=== PATIENT | female | born 1955 | race Caucasian/White ===

== ENCOUNTER 2018-06-14 07:08 | Outpatient (CLI) | payer OTHER ==
[2018-06-14 08:44] LABS: eGFR (Non-African) > 60
== END 2018-06-14 07:10 ==
LOC: LAB 07:08
PROVIDERS: ATTEND Family Medicine
DX: Z00.00 Encounter for general adult medical examination without abnormal findings (principal)
CPT/HCPCS: 36415; 80053; 80061

== ENCOUNTER 2018-11-16 10:09 | Emergency (ER) | payer OTHER ==
--- NOTE | 2018-11-16 12:50 | ED Physician Documentation ---
General Adult - HISTORIAN Historian: patient - HPI Stated Complaint: Right arm pain Chief Complaint: General Adult Onset: minutes Timing: still present Severity: moderate Further Comments: yes (Pt is a 63 yo female who slipped on ice and fell in the parking lot of her workplace and injured her R upper extremity. Pt has pain in R wrist and elbow. No shoulder pain. Pt has pain in elbow and into forearm when she tries to pronate/supinate.) - ROS CONST: no problems EYES/ENT: none CVS/RESP: none GI/: none MS/SKIN/LYMPH: other (R elbow, R wrist pain) - PAST HX Past History: other (bladder/uterine suspension) Allergies/Adverse Reactions: Allergies Allergy/AdvReac Type Severity Reaction Status Date / Time No Known Drug Allergies Allergy Unverified 08/23/13 09:52 - SOCIAL HX Smoking History: quit greater than 1 year - FAMILY HX Family History: No - VITAL SIGNS Vital Signs: Vital Signs Temp Pulse Resp BP Pulse Ox 98.2 F 81 16 121/63 99 11/16/18 10:25 11/16/18 10:25 11/16/18 10:25 11/16/18 10:25 11/16/18 10:25 - REVIEWED ASSESSMENTS Nursing Assessment Reviewed: Yes Vitals Reviewed: Yes Progress - Progress Progress: X-ray R wrist: No acute appearing osseous abnormality. X-ray R elbow: Large joint effusion. No identified cortical lucency. Consider further evaluation with CT elbow for to evaluate for possible sub radiographic fracture. Long-arm posterior splint sling f/u ortho Follow up with orthopedic doctor HANDY either at [facility] Tel. [phone] (ask for orthopedic clinic) or at [facility] Tel. [phone] Rx [place] (). Take one or two tablets by mouth as needed for moderate to severe pain. Ibuprofen 200 mg. Take 2 tablets every 8 hours with food. ED Results Lab/Radiology - Orders Orders: ED Orders Category Date Time Status CT UPPER EXT W/O Routine Exams 11/16/18 Ordered ELBOW 3 VIEWS [RAD] Stat Exams 11/16/18 Taken FOREARM 2 VIEWS [RAD] Stat Exams 11/16/18 Ordered WRIST 3 VIEWS OR MORE [RAD] Stat Exams 11/16/18 Taken General Adult Physical Exam - PHYSICAL EXAM GENERAL APPEARANCE: mild distress EENT: eye inspection normal NECK: normal inspection, supple RESPIRATORY: no resp distress, chest non-tender, breath sounds normal CVS: reg rate & rhythm, heart sounds normal ABDOMEN: soft, no organomegaly, normal bowel sounds BACK: normal inspection, no CVA tenderness SKIN: warm/dry, normal color EXTREMITIES: other (R wrist tenderness, FROM; R elbow pain, inhibited range of motion, pronation/supination, mild elbow swelling.) NEURO: oriented X3, motor nml, sensation nml Discharge Clincal Impression: R elbow effusion, likely fracture Referrals: Lily Ashton MD [Primary Care Provider] - Condition: Stable Disposition: 01 HOME, SELF-CARE Decision to Admit: NO Decision Time: 13:08
[2018-11-16 13:58] VITALS: BP 124/66
--- NOTE | 2018-11-17 03:32 | Diagnostic Imaging Report ---
ROSANNE BOOTH [facility] [address] [facility] [address] [address] Report Submission Date: Nov 16, 2018 12:27:30 PM PARKING LOT SIGNALER Patient Study Name: ESTRELLITA MONTIEL Date: Nov 16, 2018 11:45:40 AM PARKING LOT SIGNALER Modality Type: DX Gender: F Description: ELBOW 3 VIEWS : 57 Institution: [facility] Physician: ROSANNE BOOTH Examination: Plain film right elbow History: RT ELBOW, RT ELBOW PAIN AFTER FALL ON ICE THIS MORNING Comparison exams: None provided Findings: 3 views of the right elbow demonstrate normal cortical margins. No fracture. No dislocation. Radial head is within normal limits. Large joint effusion Impression: Large joint effusion. No identified cortical lucency. Consider further evaluation with CT elbow for to evaluate for possible sub radiographic fracture. Electronically signed on Nov 16, 2018 12:27:30 PM PARKING LOT SIGNALER by: Mateo NICOLE
--- NOTE | 2018-11-17 03:33 | Diagnostic Imaging Report ---
ROSANNE BOOTH [facility] [address] [facility] [address] Report Submission Date: Nov 16, 2018 12:25:14 PM INFORMATION SYSTEMS PROJECT MANAGER Patient Study Name: ESTRELLITA MONTIEL Date: Nov 16, 2018 11:41:33 AM INFORMATION SYSTEMS PROJECT MANAGER Modality Type: DX Gender: F Description: WRIST 3 VIEWS : 57 Institution: [facility] Physician: ROSANNE BOOTH Examination: Plain film right wrist History: RT WRIST, PAIN IN RT WRIST AFTER FALL ON ICE THIS MORNING Comparison exams: None available Findings: 3 views of the right wrist demonstrate osteopenia. Normal cortical margins. No fracture. No dislocation. No soft tissue abnormality. Impression: No acute appearing osseous abnormality Electronically signed on Nov 16, 2018 12:25:14 PM INFORMATION SYSTEMS PROJECT MANAGER by: Mateo NICOLE
== END 2018-11-16 13:56 | disposition home or self-care (01) ==
LOC: ED 10:09
DX: M25.421 Effusion, right elbow (principal); W00.0XXA Fall on same level due to ice and snow, initial encounter; Y93.01 Activity, walking, marching and hiking; Y92.481 Parking lot as the place of occurrence of the external cause; Y99.0 Civilian activity done for income or pay
CPT/HCPCS: 29105; 73080; 73110; 99282; 99283